=== PATIENT | female | born 1980 | race Caucasian/White ===

== ENCOUNTER 2019-04-03 20:12 | Inpatient (IN) | payer OTHER ==
[2019-04-04] MEDS ORDERED: STADOL IV PRN (00:06)
[2019-04-04] MEDS ORDERED: SUBLIMAZE IV PRN (00:06)
[2019-04-04 00:26] LABS: Hematocrit 32.6 % (30.3-42.9); Hemoglobin 10.9 gm/dl (10.1-14.3); Mean Corpuscular HGB Conc 34 % (30-34); Mean Corpuscular Volume 91 fl (79-97); Platelet Count 248 K/mm3 (140-440); Red Blood Count 3.59 M/mm3 (3.65-5.03); Red Cell Distribution Width 13.7 % (13.2-15.2)
[2019-04-04] MEDS ORDERED: CERVIDIL VG ONE (01:23)
[2019-04-04] MEDS ORDERED: LACTATED RINGERS 1,000 ML ONE (09:11)
[2019-04-04] MEDS ORDERED: XYLOCAINE 2% INFILTRATI ONE (15:06)
[2019-04-04] MEDS ORDERED: MINERAL OIL PO PRN (15:06)
[2019-04-04] MEDS ORDERED: BRETHINE IVP PRN (15:06)
[2019-04-04] MEDS ORDERED: BRETHINE SUB-Q PRN (15:06)
--- NOTE | 2019-04-04 15:14 | History and Physical Report ---
History of Present Illness Date of examination: 04/04/19 Date of admission: 04/03/19 20:12 Chief complaint: Presents for IOL History of present illness: 38yo Fe , ADOLFO 04/09/2019, 39 weeks 2 days, presents for IOL (AMA, GDM-diet controlled, LGA). Pt initiated early care with [facility] at 8w4d. records available, reviewed and scanned into chart. AMA. Anemia (iron supplementation), Low lying placenta (resolved). GDM diet controlled. LGA EFW 7lbs 15oz 03/16/19. 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 denies: smoking, alcohol abuse, prescription drug abuse, IV drug use - Obstetrical History Expected Date of Delivery: 04/09/19 Actual Gestation: 39 Week(s) 2 Day(s) : 4 Para: 3 Hx # Term Pregnancies: 3 Number of Pregnancies: 0 Spontaneous Abortions: 0 Induced : 0 Number of Living Children: 3 #1 Gender: Female year: 2,[birth year] Birthweight: 3.033 kg Method of Delivery: Vaginal Gestational age at delivery: 40 Complications: none #2 Gender: Male year: 2,[birth year] Birthweight: 3.685 kg Method of Delivery: Vaginal Gestational age at delivery: 40 Complications: none #3 Gender: Male year: 2,011 Birthweight: 3.629 kg Method of Delivery: Vaginal Gestational age at delivery: 40 Complications: none Medications and Allergies Allergies Allergy/AdvReac Type Severity Reaction Status Date / Time No Known Allergies Allergy Unverified 04/04/19 00:03 Home Medications Medication Instructions Recorded Confirmed Last Taken Type Iron 1 tab PO DAILY 04/04/19 04/04/19 04/03/19 History 1 tab Vitamin 1 tab DAILY 04/04/19 04/04/19 04/03/19 History Active Meds: Active Medications Butorphanol Tartrate (Stadol) 2 mg IV Q2H PRN PRN Reason: Pain , Severe (7-10) Ephedrine Sulfate (Ephedrine Sulfate) 10 mg IV Q2M PRN PRN Reason: Hypotension Fentanyl (Sublimaze) 100 mcg IV Q2H PRN PRN Reason: Labor Pain Lactated Ringer's (Lactated Ringers) 1,000 mls @ 125 mls/hr IV DIRECT MAXIME Oxytocin/Sodium Chloride (Pitocin/Ns 20 Unit/1000ml Drip) 20 units in 1,000 mls @ 125 mls/hr IV DIRECT MXAIME Lidocaine (Xylocaine 2%) 20 ml INFILTRATI ONCE ONE Stop: 04/04/19 15:07 Mineral Oil (Mineral Oil) 30 ml PO QHS PRN PRN Reason: Constipation Terbutaline Sulfate (Brethine) 0.25 mg SUB-Q ONCE PRN PRN Reason: Hyperstimulation/Hypertonicity Terbutaline Sulfate (Brethine) 0.25 mg IVP ONCE PRN PRN Reason: Hyperstimulation/Hypertonicity Review of Systems Eyes: normal appearance Cardiovascular: no chest pain, no shortness of breath Respiratory: no shortness of breath Breasts: normal Gastrointestinal: no abdominal pain, no nausea, no vomiting, no diarrhea Genitourinary: normal appearance, no vaginal bleeding, no leakage of fluid, no genital sores, no contractions - Vital Signs Vital signs: Vital Signs Temp Pulse Resp BP Pulse Ox 98.0 F 62 16 121/68 97 04/03/19 22:44 04/03/19 22:44 04/03/19 22:44 04/03/19 22:44 04/03/19 22:44 Temp Pulse Resp BP Pulse Ox 97.8 F 61 18 118/58 95 04/04/19 14:28 04/04/19 15:05 04/04/19 11:55 04/04/19 14:20 04/04/19 15:05 - Physical Exam Breasts: Positive: normal Cardiovascular: Regular rate, Normal S1, Normal S2, No murmurs Lungs: Positive: Clear to auscultation, Normal air movement Abdomen: Positive: normal appearance, soft, normal bowel sounds. Negative: distention, tenderness Genitourinary (Female): Positive: normal external genitalia, normal perenium Vulva: both: normal Vagina: Positive: normal moisture Uterus: Positive: enlarged (Gravid) Anus/Rectum: Positive: normal perianal skin Extremities: Positive: normal Deep Tendon Reflex Grade: Normal +2 - Obstetrical FHR: auscultation normal, category 1 Uterine Contraction Monitor Mode: External Cervical Dilatation: 1 (per admitting RN) Results Result Diagrams: 04/03/19 21:59 Abnormal lab results 04/03/19 04/04/19 Range/Units 21:59 12:12 RBC 3.59 L (3.65-5.03) M/mm3 POC Glucose 69 L (70-105) All other labs normal. Assessment and Plan A: Term IUP AMA 38 yo GDM; Diet controlled Category 1 tracing GBS Negative P: Admit to L&D Cervidil IOL Accucheck q4hrs Anticiapte
[2019-04-04] MEDS ORDERED: PITOCin/NS 20 UNIT/1000ML DRIP 20 UNITS/1,000 ML BAG IV SCH (16:00)
[2019-04-04] MEDS ORDERED: PITOCin/NS 30 UNIT/500ML 30,000 MILLIUNITS/500 ML BAG IV ONE (16:51)
[2019-04-04] MEDS ORDERED: PITOCin/NS 30 UNIT/500ML 30 UNITS/500 ML BAG IV SCH (17:19)
[2019-04-04] MEDS: LACTATED RINGERS 1,000 ML IV SCH (17:30)
[2019-04-05] MEDS: LACTATED RINGERS 1,000 ML IV SCH (01:33)
[2019-04-05] MEDS ORDERED: PHENERGAN PO PRN (03:52)
[2019-04-05] MEDS ORDERED: NORCO 5/325 PO PRN (03:52)
[2019-04-05] MEDS ORDERED: BENADRYL PO PRN (03:52)
[2019-04-05] MEDS ORDERED: MILK OF MAGNESIA PO PRN (03:52)
[2019-04-05] MEDS ORDERED: TYLENOL PO PRN (03:52)
[2019-04-05] MEDS ORDERED: ZOFRAN IV PRN (03:52)
[2019-04-05] MEDS ORDERED: TUCKS PAD TP PRN (03:52)
[2019-04-05] MEDS ORDERED: LANSINOH TP PRN (03:52)
[2019-04-05] MEDS ORDERED: SODIUM CHLORIDE FLUSH SYRINGE 10 ML IV NR (04:00)
--- NOTE | 2019-04-05 04:02 | Procedure Note ---
OB Delivery Note - Delivery Date of Delivery: 04/05/19 Surgeon: MARIA ESTHER RHODES (RENEE) Estimated blood loss: 100cc - Vaginal Delivery presentation: vertex Delivery position: OA Delivery induction: oxytocin Delivery monitor: external FHT, external uterine Route of delivery: (03:36) Delivery placenta: spontaneous (03:43) Delivery cord: 3 umbilical vessels Episiotomy: none Delivery laceration: none Anesthesia: none Delivery comments: viable male RENE position over intact perineum at 03:36. Vigorous placed [id number] on maternal abdomen. Delayed cord clamping, then cut by FOB with my guidance. Cord blood collected per protocol. Spontaneous bonilla delivery of intact placenta at 03:43. 3VC. FF@U-2. No tears or lacerations. EBL 100cc. Infant and mother left in stable condition in L&D. - A at 1 minute: 9 at 5 minutes: 9 Gender: Male (3613 grams, 7lbs 15oz, 20")
[2019-04-05] MEDS: IBUPROFEN PO SCH ×2 (05:15→12:00)
[2019-04-05 15:47] LABS: Hematocrit 32.7 % (30.3-42.9); Hemoglobin 11.1 gm/dl (10.1-14.3)
[2019-04-06] MEDS: IBUPROFEN PO SCH ×3 (00:14→11:36)
[2019-04-06] MEDS ORDERED: BOOSTRIX IM ONE (06:00)
--- NOTE | 2019-04-06 11:51 | Progress Note ---
Assessment and Plan A: PPD#1 s/p Stable P: Routine PP orders Discharge home today Subjective - Subjective Date of service: 04/06/19 Principal diagnosis: PPD#1 s/p Interval history: 38yo Fe , ADOLFO 04/09/2019, 39 weeks 2 days, presents for IOL (AMA, GDM-diet controlled, LGA). Pt initiated early care with [facility] at 8w4d. records available, reviewed and scanned into chart. AMA. Anemia (iron supplementation), Low lying placenta (resolved). GDM diet controlled. LGA EFW 7lbs 15oz 03/16/19. Patient reports: appetite normal, voiding normally, pain well controlled, flatus, ambulating normally, no bowel movement : doing well, nursing well Objective - Vital Signs Latest vital signs: Vital Signs Temp Pulse Resp BP BP Pulse Ox 04/06/19 08:33 97.7 F 50 L 18 116/62 99 04/05/19 23:45 98.2 F 62 18 103/61 97 04/05/19 15:54 97.6 F 61 16 126/65 99 Intake and Output 04/05/19 04/06/19 04/06/19 23:59 07:59 15:59 Intake Total 960 240 240 Output Total 500 Balance 460 240 240 Intake: Oral 600 240 240 Intake, Free Water 360 Output: Urine 500 Void 500 Other: Total, Intake Amount 120 240 240 Total, Output Amount 500 # Voids Void 1 1 1 - Exam Breasts: Present: normal, Cardiovascular: Present: Regular rate, Normal S1, Normal S2, No murmurs Lungs: Present: Clear to auscultation, Normal air movement Abdomen: Present: normal appearance, soft, normal bowel sounds. Absent: distention Vulva: both: normal Uterus: Present: firm, fundal height at umbilicus Extremities: Present: normal Deep Tendon Reflex Grade: Normal +2
--- NOTE | 2019-04-06 11:53 | Discharge Summary ---
Providers - Providers Date of Admission: 04/03/19 20:12 Date of discharge: 04/06/19 Attending physician: MEAGAN RABAGO MD Primary care physician: MEAGAN RABAGO MD Hospitalization Reason for admission: active labor, IUP at term Delivery: Procedure details: See H&P and delivery note Episiotomy: none Laceration: none Other procedures: none complications: none Discharge diagnosis: IUP at term delivered baby: male Condition at discharge: Good Disposition: DC-01 TO HOME OR SELFCARE Plan - Provider Discharge Summary Activity: routine, no sex for 6 weeks, no heavy lifting 4 weeks, no strenuous exercise Diet: routine Instructions: routine Additional instructions: [] Smoking cessation referral if applicable(refer to patient education folder for contact #) [] Refer to [facility] Center Booklet Call your doctor immediately for: * Fever > 100.5 * Heavy vaginal bleeding ( >1 pad per hour) * Severe persistent headache * Shortness of breath * Reddened, hot, painful area to leg or breast * Drainage or odor from incision. * Keep incision clean and dry at all times and follow doctor's instructions regarding bathing/showering - Follow up plan Follow up: MEAGAN RABAGO MD [Primary Care Provider] - 6 Weeks
[2019-04-06 15:56] VITALS: BP 118/53
== END 2019-04-06 15:59 | disposition home or self-care (01) | DRG 807 ==
LOC: LD 20:12 → OB 04-05 05:53
PROVIDERS: ADMIT Obstetrics & Gynecology; ATTEND Obstetrics & Gynecology
PROC: 3E033VJ Introduction of Other Hormone into Peripheral Vein, Percutaneous Approach (ICD-10-PCS; 2019-04-03)
PROC: 10E0XZZ Delivery of Products of Conception, External Approach (ICD-10-PCS; principal; 2019-04-05)
PROC: 3E0234Z Introduction of Serum, Toxoid and Vaccine into Muscle, Percutaneous Approach (ICD-10-PCS; 2019-04-06)
DX: O24.420 Gestational diabetes mellitus in childbirth, diet controlled (principal); Z37.0 Single live birth; Z3A.39 39 weeks gestation of pregnancy; Z82.49 Family history of ischemic heart disease and other diseases of the circulatory system; Z83.3 Family history of diabetes mellitus; Z23 Encounter for immunization
CPT/HCPCS: 36415; 59200; 82962; 85014; 85018; 85027; 86592; 86850; 86900; 86901; 90471; 90715; G0378; A6250; J0595; J2590; J3010; J7120